=== PATIENT | female | born 1995 | race Caucasian/White ===

== ENCOUNTER 2018-10-12 08:49 | Outpatient (CLI) | payer OTHER ==
--- NOTE | 2018-10-12 10:40 | RAD ---
LUMBAR SPINE SERIES THREE VIEWS FLEXION AND EXTENSION: History: Low back pain radiating to the left leg. FINDINGS: Vertebral bodies are normal in height. There is questionable minimal disc narrowing at L5-S1. There i s no abnormal motion with flexion or extension. No spondylolisthesis. IMPRESSION: Fairly unremarkable lumbar spine views. Questionable slight disc narrowing at L5-S1. POS: [facility]
--- NOTE | 2018-10-12 12:13 | MRI ---
MRI LUMBAR SPINE WITHOUT CONTRAST: HISTORY: Low back pain radiating down the left foot and leg with associated numbness and weakness since the september. COMPARISON: None. TECHNIQUE: MRI lumbar spine is performed without intravenous Gadolinium administration. Multisequential, multip lanar imaging is performed. FINDINGS: Appropriate T1 marrow signal intensity of the lumbar vertebrae. Lumbar spine vertebral body height i s maintained. There is no fracture. There is symmetric signal intensity of the paraspinal muscles. There is appropriate signal intensity of the visualized solid organs. Conus medullaris terminates at the mid aspect of L1. T12-L1: No significant central canal stenosis or foraminal narrowing. L1-L2: No significant central canal stenosis or foraminal narrowing. L2-L3: Mild loss of disk space height. Mild disk desiccation. There is a subtle T2 and STIR hyperi ntensity along the right paraspinal region with a small focal protrusion. A small superimposed annul ar tear is suspected. Nevertheless, there is no significant central canal stenosis or neural foramin al narrowing. L3-L4: Adequate disk hydration. No significant central canal stenosis. Foramen are patent. L4-L5: Adequate disk hydration. No significant central canal stenosis or foraminal narrowing L5-S1. Desiccation with mild loss of disk space height. 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 There appears to be also a probable sequestered disk fragment measuring 1.3 cm craniocaudal x at least 0.8 x 0.4 cm. Th ere is no significant stenosis of the thecal sac or right subarticular zone. However, there is mass effect with complete obscuration of the traversing left S1 nerve root. Mild bilateral foraminal narr owing. IMPRESSION: 1. Annular tear at L2-L3. 2. Left subarticular disk protrusion with inferior disk extrusion and likely sequestered disk fragme nt at L5-S1. There is no significant stenosis of the thecal sac. However, there is complete obscura tion of the traversing left S1 nerve root. POS: [facility]
== END 2018-10-12 08:50 | disposition home or self-care (01) ==
LOC: SCSMRI 08:49
PROVIDERS: ATTEND Neurological Surgery
DX: M54.16 Radiculopathy, lumbar region (principal); M51.27 Other intervertebral disc displacement, lumbosacral region; M54.5 Low back pain
CPT/HCPCS: 72100; 72148